=== PATIENT | female | born 1970 | race Caucasian/White ===

== ENCOUNTER 2018-02-07 07:49 | Emergency (ER) | payer SELFPAY ==
[2018-02-07] MEDS ORDERED: LIDOCAINE 1% INJ-PF (10 MG/ML) 30 ML SDV INJ ONE (08:36)
--- NOTE | 2018-02-07 09:24 | ER Document Report ---
ED Hand/Wrist Injury - General Chief Complaint: Finger Injury Stated Complaint: FINGER LACERATION Time Seen by Provider: 02/07/18 08:21 Mode of Arrival: Ambulatory Notes: 47-year-old female presented to ED for laceration to the third left finger. She states she was cleaning up a processor when she dropped 1 of the blades and is sliced her finger on the way to the floor. Patient is alert and oriented respirations regular and unlabored speaking in full sentences bleeding is under control which patient has full range of motion to her finger. - HPI Injury to: Middle finger - Left Onset: Just prior to arrival Where: Home, Indoors Timing: Still present Quality of pain: Sharp Pain Level: 2 Context: Laceration - Related Data Allergies/Adverse Reactions: naproxen [From Aleve] Allergy (Verified 02/07/18 07:51) Past Medical History - General Information source: Patient - Social History Smoking Status: Current Every Day Smoker Cigarette use (# per day): Yes Chew tobacco use (# tins/day): No Smoking Education Provided: Yes - 4 minutes Frequency of alcohol use: None Drug Abuse: None Lives with: Spouse/Significant other Family History: Reviewed & Not Pertinent Patient has suicidal ideation: No Patient has homicidal ideation: No - Past Medical History Cardiac Medical History: Reports: None Pulmonary Medical History: Reports: None EENT Medical History: Reports: None Neurological Medical History: Reports: None Endocrine Medical History: Reports: None Renal/ Medical History: Reports: None Malignancy Medical History: Reports: None GI Medical History: Reports: None Musculoskeletal Medical History: Reports Hx Arthritis, Reports Hx Musculoskeletal Trauma Skin Medical History: Reports None Psychiatric Medical History: Reports: None Traumatic Medical History: Reports: None Infectious Medical History: Reports: None Past Surgical History: Reports: Hx Orthopedic Surgery - bilateral knee replacement - Immunizations Immunizations up to date: Yes Hx Diphtheria, Pertussis, Tetanus Vaccination: Yes Review of Systems - Review of Systems Constitutional: No symptoms reported EENT: No symptoms reported Cardiovascular: No symptoms reported Respiratory: No symptoms reported Gastrointestinal: No symptoms reported Genitourinary: No symptoms reported Female Genitourinary: No symptoms reported Musculoskeletal: No symptoms reported Skin: Other - Laceration to left third finger Hematologic/Lymphatic: No symptoms reported Neurological/Psychological: No symptoms reported Physical Exam - Vital signs Vitals: Temp Pulse Resp BP Pulse Ox 99.0 F 87 16 126/84 H 97 02/07/18 07:54 02/07/18 07:54 02/07/18 07:54 02/07/18 07:54 02/07/18 07:54 Interpretation: Normal - General General appearance: Appears well, Alert - HEENT Head: Normocephalic, Atraumatic Eyes: Normal Pupils: PERRL - Respiratory Respiratory status: No respiratory distress Chest status: Nontender Breath sounds: Normal Chest palpation: Normal - Cardiovascular Rhythm: Regular Heart sounds: Normal auscultation Murmur: No - Abdominal Inspection: Normal Distension: No distension Bowel sounds: Normal Tenderness: Nontender Organomegaly: No organomegaly - Back Back: Normal, Nontender - Extremities General upper extremity: Normal inspection, Normal color, Normal ROM, Normal temperature General lower extremity: Normal inspection, Nontender, Normal color, Normal ROM, Normal temperature, Normal weight bearing. No: Trinh's sign Hand: Tender, Laceration - 2 cm laceration, No evidence of human bite - left third finger, No evidence of FB. No: Abrasion, Deformity, Dislocation, Ecchymosis, Instability, Nail injury, Swelling, Tendon deficit - Neurological Neuro grossly intact: Yes Cognition: Normal Orientation: AAOx4 Kira Coma Scale Eye Opening: Spontaneous Kira Coma Scale Verbal: Oriented Kira Coma Scale Motor: Obeys Commands Kira Coma Scale Total: 15 Speech: Normal Motor strength normal: LUE, RUE, LLE, RLE Sensory: Normal - Psychological Associated symptoms: Normal affect, Normal mood - Skin Skin Temperature: Warm Skin Moisture: Dry Skin Color: Normal Course - Vital Signs Vital signs: Temp Pulse Resp BP Pulse Ox 98.3 F 75 20 107/73 100 02/07/18 09:28 02/07/18 09:28 02/07/18 09:28 02/07/18 09:28 02/07/18 09:28 Procedures - Laceration/Wound Repair Left Finger 3rd digit Time completed: 09:20 Wound length (cm): 2 Wound's Depth, Shape: Superficial, Linear Laceration pre-procedure: Sterile PPE donned, Sterile drapes applied Anesthetic type: 1% Lidocaine Volume Anesthetic (mLs): 3 Wound explored: Clean Irrigated w/ Saline (mLs): 300 Wound Repaired With: Sutures Suture Size/Type: 5:0, Ethilon Number of Sutures: 4 Layer Closure?: No Post-procedure wound care: Sterile dressing applied, Splint applied Post-procedure NV exam normal: Yes Complications: No Discharge - Discharge Clinical Impression: Laceration of left middle finger Qualifiers: Encounter type: initial encounter Damage to nail status: without damage Foreign body presence: without foreign body Qualified Code(s): S61.213A - Laceration without foreign body of left middle finger without damage to nail, initial encounter Condition: Stable Disposition: HOME, SELF-CARE Instructions: Family Physicians / Practices Additional Instructions: Hand Laceration A laceration on the hand can present special problems. It may be difficult to keep the wound dry. Motion of the fingers can disturb the healing edges. Your work may involve exposure to damaging chemicals or water. Keep the wound clean and dry. If you can't keep the cut dry, undisturbed, and free of chemical exposure, please discuss this with the doctor. If any water or chemical gets onto the dressing, remove it, blot the wound dry, then apply a fresh bandage. Dressings should be changed every day. If you feel the stitches pulling as you move the hand, a splint or other form of protection is needed. If any signs of infection occur (swelling, redness, increasing tenderness, red streaks, tender lumps in the armpit, or fever), see the doctor immediately. SOAP CLEANSING: Gently wash the wound daily using a mild soap (like Ivory, Phisoderm, Neutrogena). Use warm water, rubbing gently until all debris, ooze, and crusting have been washed from the wound. Allow to dry briefly (about 10 minutes) after cleaning. Repeat this cleansing at least three times a day for the first two days and then once or twice a day. ANTIBIOTIC OINTMENT PROTECTION: Your wounds are such that dressing them is not practical or optional. After cleansing, you should apply a thin coating of antibiotic ointment (Bacitracin, not Neosporin) to the wounds at least three times daily. This lessens infection risk, and may decrease the amount of scarring. Use a q-tip or dull butter knife, not your finger, to apply this ointment. Any debris or ooze which builds up in the ointment should be gently rubbed off with a sterile gauze pad. Harder crusting may need to be gently scrubbed off with a clean wash cloth with soap and warm water, perhaps applying a warm, wet wash cloth to the wound for ten minutes first. Development of redness, severe itching, or blistering may mean allergy to the ointment. See the doctor. PROPHYLACTIC ANTIBIOTIC: The antibiotics which have been prescribed are designed to decrease the risk of infection. Only certain types of wounds benefit from this -- the typical cut, scrape, or burn DOES NOT require antibiotics. Of course, infection can still occur despite the use of prophylactic antibiotics. Your wound will heal with less chance of an infectious complication if you take the medication as directed. The most important dose is the FIRST dose, so don't delay filling the prescription! FOLLOW-UP CARE: Please return in ___3__ days for an infection check and dressing change. Your sutures should be removed in ___8__ days. To facilitate a timely removal of your sutures, you may return to the Emergency Department at [facility]. You do not need to call for an appointment, but the best time to come in for suture removal is early in the morning. If you have been referred to another physician for follow-up care, call that physicians office for an appointment as you were instructed. If you experience a significant change in your laceration, or if you are concerned there may be an infection (swelling, redness, drainage, increasing tenderness, red streaks, tender lumps in the armpit or groin above the laceration, or fever), return to the Emergency Department immediately re-evaluation. Prescriptions: Cephalexin Monohydrate [Keflex 500 mg Capsule] 500 mg PO Q6H 5 Days capsule Forms: Elevated Blood Pressure, Smoking Cessation Education, Return to Work
[2018-02-07 09:51] VITALS: BP 107/73
== END 2018-02-07 09:30 | disposition home or self-care (01) ==
LOC: ER 07:49
DX: S69.92XA Unspecified injury of left wrist, hand and finger(s), initial encounter (principal); W29.0XXA Contact with powered kitchen appliance, initial encounter; Y92.000 Kitchen of unspecified non-institutional (private) residence as the place of occurrence of the external cause; F17.210 Nicotine dependence, cigarettes, uncomplicated; Z96.653 Presence of artificial knee joint, bilateral
CPT/HCPCS: 99406; 99283; 12001; J3490

== ENCOUNTER 2018-06-22 00:19 | Emergency (ER) | payer OTHER ==
[2018-06-22] MEDS ORDERED: ACETAMINOPHEN 325 MG TABLET PO ONE (01:09)
--- NOTE | 2018-06-22 01:15 | ER Document Report ---
HPI - HPI Time Seen by Provider: 06/22/18 00:59 Pain Level: 4 Notes: Patient is a 47-year-old female who presents to the emergency department for right foot pain. 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 Patient states that she did have a closed toed tennis shoes on at that time. Patient has reported she can ambulate but is painful. Patient c/o swelling. Patient has used ibuprofen and ice without much relief. - REPRODUCTIVE Reproductive: DENIES: : Past Medical History - Social History Smoking Status: Unknown if Ever Smoked Family History: Reviewed & Not Pertinent Renal/ Medical History: Denies: Hx Peritoneal Dialysis Musculoskeletal Medical History: Reports Hx Arthritis, Reports Hx Musculoskeletal Trauma Past Surgical History: Reports: Hx Orthopedic Surgery - bilateral knee replacement - Immunizations Immunizations up to date: Yes Hx Diphtheria, Pertussis, Tetanus Vaccination: Yes Vertical Provider Document - CONSTITUTIONAL Agree With Documented VS: Yes Exam Limitations: No Limitations General Appearance: No Apparent Distress - INFECTION CONTROL TRAVEL OUTSIDE OF THE [place] IN LAST 30 DAYS: No - HEENT HEENT: Atraumatic, Normocephalic - NECK Neck: Normal Inspection - RESPIRATORY Respiratory: Breath Sounds Normal, No Respiratory Distress - CARDIOVASCULAR Cardiovascular: Regular Rate - GI/ABDOMEN Gastrointestinal: Abdomen Soft, Abdomen Non-Tender - NEURO Level of Consciousness: Awake, Alert, Appropriate Notes: + swelling to the dorsal aspect of the right foot, + 2 strong dorsalis pedis pulse, no ecchymosis noted, + flexion and extension to the right foot. No laceration or skin breakdown. No erythema. - DERM Integumentary: Warm Course - Re-evaluation Re-evalutation: 06/22/18 01:15 X-ray has been obtained of the right foot. Will medicate patient with Tylenol as she had taken ibuprofen around 9 PM last night. X-ray negative for acute fracture. Discussed these results with the patient. Informed patient to rest and elevate the lower extremity to help with swelling and to continue ibuprofen or Tylenol as needed for pain. Offered patient a work note for a few days, patient states that she has today off to go back tomorrow and does not need a work note. Informed patient that rest, elevation, ice can help with her discomfort. - Vital Signs Vital signs: Temp Pulse Resp BP Pulse Ox 98.9 F 80 18 123/85 96 06/22/18 00:35 06/22/18 00:35 06/22/18 00:35 06/22/18 00:35 06/22/18 00:35 - Diagnostic Test Radiology reviewed: Image reviewed, Reports reviewed Discharge - Discharge Clinical Impression: Contusion of right foot Qualifiers: Encounter type: initial encounter Qualified Code(s): S90.31XA - Contusion of right foot, initial encounter Condition: Stable Disposition: HOME, SELF-CARE Additional Instructions: You were seen for right foot pain. Your x-ray was negative for any acute fracture. You have been diagnosed with a foot contusion. Continue to take ibuprofen or Tylenol as needed for your discomfort. Continue to ice the area as well as elevate. Contusion Your injury has resulted in a contusion -- a crushing of the deep tissues. No injury to important structures was detected during the physician's exam. Contusions vary in the amount of pain they cause, and in the length of time required for healing. Typically, the area will become bruised, and will remain painful to touch for two or three weeks. However, most patients are back to working and playing within a few days. After the initial period of rest and cold-packs, your symptoms (together with the doctor's recommendations) will determine how rapidly you can get back to full activity. Usually this means "do what feels okay, but don't do things that hurt." If re-examination was recommended, it's important to follow up as instructed. Call the doctor or return any time if pain increases, if swelling becomes severe, if you develop numbness or weakness in an injured extremity, or if any other alarming symptoms occur.
--- NOTE | 2018-06-22 01:23 | RADIOLOGY REPORT (SQ) ---
EXAM DESCRIPTION: XR FOOT 3 OR MORE VIEWS COMPLETED DATE/TME: 06/22/2018 00:00 CLINICAL HISTORY: 47 years Female, injury to top COMPARISON: None. Findings: Bones, joints, and soft tissues of the RIGHT XR FOOT 3 OR MORE VIEWS appear intact. IMPRESSION: No acute findings.
[2018-06-22 01:52] VITALS: BP 120/82
== END 2018-06-22 01:52 | disposition home or self-care (01) ==
LOC: ER 00:19
DX: S90.31XA Contusion of right foot, initial encounter (principal); M79.671 Pain in right foot; W20.8XXA Other cause of strike by thrown, projected or falling object, initial encounter; Y92.524 Gas station as the place of occurrence of the external cause; Y99.0 Civilian activity done for income or pay
CPT/HCPCS: 99283

== ENCOUNTER 2019-09-30 08:06 | Emergency (ER) | payer SELFPAY ==
[2019-09-30 08:21] VITALS: BP 145/65
--- NOTE | 2019-09-30 08:56 | ER Document Report ---
ED General - General Chief Complaint: Knee Pain Stated Complaint: MOUTH,KNEE PAIN Time Seen by Provider: 09/30/19 08:19 Primary Care Provider: [facility] [Provider Group] - Follow up as needed [facility] [Provider Group] - Follow up as needed SYLWIA GRANADO MD [ACTIVE STAFF] - Follow up as needed Mode of Arrival: Ambulatory Information source: Patient Notes: Patient is a 48-year-old female comes emergency room with a complaint of left knee pain as well as right lower dental pain. Patient states her primary reason for being here is her left knee. She has a history of bilateral knee replacements 10 years ago. She states in the past week the left knee has been swelling and giving out on her occasionally. She denies any recent traumatic events no falls. She denies any injuries of twisting or turning the knee. 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 Patient also states that she has bad teeth and the right lower portion has been bothering her for the past week as well and so she was concerned thinking that the possibility of getting an infection in her mouth may lead to an infection in her replaced knee. She denies any other medical problems with the exception of history of asthma. Patient does smoke cigarettes daily. Knee replacements were done in [place] 10 years ago. TRAVEL OUTSIDE OF THE [place] IN LAST 30 DAYS: No - HPI Onset: Last week Onset/Duration: Sudden Quality of pain: Achy Severity: Moderate Pain Level: 2 Associated symptoms: None Exacerbated by: Walking Relieved by: Remaining still Similar symptoms previously: No Recently seen / treated by doctor: No - Related Data Allergies/Adverse Reactions: naproxen [From Aleve] Allergy (Verified 02/07/18 07:51) Past Medical History - General Information source: Patient - Social History Smoking Status: Current Every Day Smoker Cigarette use (# per day): Yes - Half pack Chew tobacco use (# tins/day): No Smoking Education Provided: Yes Frequency of alcohol use: Rare Drug Abuse: None Lives with: Family Family History: Reviewed & Not Pertinent Renal/ Medical History: Denies: Hx Peritoneal Dialysis Musculoskeletal Medical History: Reports Hx Arthritis, Reports Hx Musculoskeletal Trauma Past Surgical History: Reports: Hx Orthopedic Surgery - bilateral knee replacement - Immunizations Immunizations up to date: Yes Hx Diphtheria, Pertussis, Tetanus Vaccination: Yes Review of Systems - Review of Systems Constitutional: No symptoms reported EENT: Dental problem Cardiovascular: No symptoms reported Respiratory: No symptoms reported Gastrointestinal: No symptoms reported Genitourinary: No symptoms reported Female Genitourinary: No symptoms reported Musculoskeletal: See HPI, Joint pain, Joint swelling Skin: No symptoms reported Hematologic/Lymphatic: No symptoms reported Neurological/Psychological: No symptoms reported -: Yes All other systems reviewed and negative Physical Exam - Vital signs Vitals: Temp Pulse Resp BP Pulse Ox 98.6 F 86 19 145/65 H 100 09/30/19 08:14 09/30/19 08:14 09/30/19 08:14 09/30/19 08:14 09/30/19 08:14 Interpretation: Hypertensive - Notes Notes: PHYSICAL EXAMINATION: GENERAL: Patient is a well-nourished well-developed 48-year-old female who is morbidly obese in no apparent distress on examination this morning. HEAD: Atraumatic, normocephalic. ENT: Examination patient's oral cavity shows severe dental problems throughout the mouth but primary concern is right lower. On the right lower patient has remnants of all her teeth they are at the gumline and smoothed over. Moderate amount of decay is also noted in all the lower right teeth. Palpation of the area shows some tenderness. There is also erythema noted around the gum lines. Palpation also exhibits some mild exudate on pressure applied to all areas on that right lower gums. NECK: Normal range of motion, supple without lymphadenopathy LUNGS: Auscultation patient's lungs shows bilateral breath sounds decreased throughout no rhonchi rales or wheeze heard at this time. HEART: Regular rate and rhythm without murmurs Female : deferred Musculoskeletal: Examination patient's area concern is her left knee. When compared to the right side there is some mild swelling with 2+ effusion noted surrounding the patella. Noted some mild laxity and medial and lateral. Well and healed sick incision site noted. Anterior drawer is negative. NEUROLOGICAL: Normal speech, normal gait. Normal sensory, motor exams PSYCH: Normal mood, normal affect. SKIN: Warm, Dry, normal turgor, no rashes or lesions noted. Course - Re-evaluation Re-evalutation: 09/30/19 09:48 Patient's x-ray came back negative for acute findings although there was a small effusion was possible on the x-ray. Given that she has had total knee replacement and that there is no overt fluid collections we will go and place her in a knee immobilizer and I will give her the name of the orthopedist clinical account liaison. Also I will give her antibiotics for her teeth and have informed her she needs to follow-up with someone relatively soon about those. - Vital Signs Vital signs: Temp Pulse Resp BP Pulse Ox 98.6 F 86 19 145/65 H 100 09/30/19 08:14 09/30/19 08:14 09/30/19 08:14 09/30/19 08:14 09/30/19 08:14 Procedures - Immobilization Left Knee Time completed: 10:08 Immobilizer type: Knee immobilizer Performed by: PCT Post-Proc Neuro Vasc Exam: Normal Alignment checked and good: Yes Discharge - Discharge Clinical Impression: Pain, dental Strain of knee and leg, left Qualifiers: Encounter type: initial encounter Qualified Code(s): S86.912A - Strain of unspecified muscle(s) and tendon(s) at lower leg level, left leg, initial encounter Condition: Stable Disposition: HOME, SELF-CARE Instructions: [facility], Ice & Elevation ([facility]), Knee Immobilizing Splint ([facility]), Penicillin V K ([facility]), Sprained Knee ([facility]), Toothache ([facility]) Additional Instructions: As we discussed your x-ray does look normal with the endpoint. There is no hardware problems. Given that you are having swelling and you are having some instability you need to wear the immobilizer at all times. I am giving you the name of the orthopedist clinical account liaison you can contact his office to see if he can accommodate you. i WILL give you the contact information for [facility] they can monitor you for medical problems to include your asthma. Need to remind you to stop smoking. Should you have any other concerns or problems you can return to ER for reevaluation. Prescriptions: Penicillin V Potassium [Penicillin Vk 500 mg Tablet] 500 mg PO QID #40 tablet Forms: Elevated Blood Pressure, Smoking Cessation Education, Return to Work Referrals: SYLWIA GRANADO MD [ACTIVE STAFF] - Follow up as needed [facility] [Provider Group] - Follow up as needed [facility] [Provider Group] - Follow up as needed
--- NOTE | 2019-09-30 09:31 | RADIOLOGY REPORT (SQ) ---
EXAM DESCRIPTION: KNEE LEFT 4 VIEW IMAGES COMPLETED DATE/TIME: 09/30/2019 9:19 am REASON FOR STUDY: swelling COMPARISON: None. NUMBER OF VIEWS: Four views. TECHNIQUE: AP, lateral, and both oblique radiographic images acquired of the left knee. LIMITATIONS: Suboptimal positioning on the lateral radiograph. FINDINGS: MINERALIZATION: Normal. BONES: The patient is status post left total knee arthroplasty without evidence of hardware fracture, perihardware lucency or migration. No acute osseous injury. JOINT: A small joint effusion may be present. SOFT TISSUES: No soft tissue swelling. No radio-opaque foreign body. OTHER: No other significant finding. IMPRESSION: Status post left total knee arthroplasty without evidence of hardware complication. A s mall joint effusion may be present. TECHNICAL DOCUMENTATION: JOB ID: [id number] 2010 [employer]- All Rights Reserved Reading location - IP/workstation name: [email or web address]
== END 2019-09-30 11:06 | disposition home or self-care (01) ==
LOC: ER 08:06
DX: S86.912A Strain of unspecified muscle(s) and tendon(s) at lower leg level, left leg, initial encounter (principal); K08.89 Other specified disorders of teeth and supporting structures; M25.562 Pain in left knee; Z96.653 Presence of artificial knee joint, bilateral; X58.XXXA Exposure to other specified factors, initial encounter; F17.210 Nicotine dependence, cigarettes, uncomplicated
CPT/HCPCS: 99283